=== PATIENT | female | born 1990 | race African-American/Black ===

== ENCOUNTER 2016-10-12 09:46 | Inpatient (IN) | payer MEDICAID ==
[~2016-10-12] VITALS: Ht 170.2 cm; Wt 64.9 kg
[2016-10-12 10:00] VITALS: BP 116/69
[2016-10-12] MEDS ORDERED: LORazepam 2 MG TABLET PO PRN (10:15)
[2016-10-12] MEDS ORDERED: ZOLPIDEM TARTRATE 10 MG TABLET PO PRN (10:15)
[2016-10-12] MEDS ORDERED: HALOPERIDOL 5 MG TABLET PO PRN (10:15)
[2016-10-12] MEDS ORDERED: INFLUENZA VIRUS VACCINE QVS 2016-17 (3YR+)/PF 60 MCG/0.5 ML SYRINGE IM ONE (11:30)
[2016-10-12] MEDS ORDERED: LORazepam 2 MG/ML VIAL ONE (11:47)
[2016-10-12] MEDS ORDERED: DiphenhydrAMINE HCL 50 MG/ML VIAL ONE (11:48)
[2016-10-12] MEDS ORDERED: HALOPERIDOL LACTATE 5 MG/ML VIAL ONE (11:48)
[2016-10-12] MEDS ORDERED: DiphenhydrAMINE HCL 50 MG/ML VIAL IM ONE (12:00)
[2016-10-12] MEDS ORDERED: LORazepam 2 MG/ML VIAL IM ONE (12:00)
[2016-10-12] MEDS ORDERED: HALOPERIDOL LACTATE 5 MG/ML VIAL IM ONE (12:00)
[2016-10-12 14:26] VITALS: BP 94/56
[2016-10-12 17:56] VITALS: BP 118/61
[2016-10-12 17:57] VITALS: BP 118/61
[2016-10-13 07:36] LABS: BASOPHILS % (AUTO) 0.8 % (0.0-2.0); EOSINOPHILS % (AUTO) 2.5 % (1.0-6.0); HEMATOCRIT 38.7 % (36-46); HEMOGLOBIN 12.7 g/dL (12.0-16.0); LYMPHOCYTES # (AUTO) 1.8 K/uL (1.0-4.8); LYMPHOCYTES % (AUTO) 40.6 % (22.0-44.0); MEAN CORPUSCULAR HEMOGLOBIN 32.3 pg (26.0-34.0); MEAN CORPUSCULAR HGB CONC 32.8 G/dL (31.0-37.0); MEAN CORPUSCULAR VOLUME 98 fL (80-100); MONOCYTES # (AUTO) 0.3 K/uL (0.1-1.0); MONOCYTES % (AUTO) 5.7 % (2.0-9.0); NEUTROPHILS # (AUTO) 2.3 K/uL (1.8-7.7); NEUTROPHILS % (AUTO) 50.4 % (40.0-70.0); PLATELET COUNT (AUTO) 289 K/uL (150-450); RED BLOOD CELL COUNT(AUTO) 3.94 MIL/uL (4.00-5.20); WHITE BLOOD COUNT (AUTO) 4.5 K/uL (4.5-11.0)
[2016-10-13 08:33] LABS: ALANINE AMINOTRANSFERASE 19 U/L (12-78); ALBUMIN 3.2 g/dL (3.4-5.0); ANION GAP 10 mmol/L (8-16); ASPARTATE AMINOTRANSFERASE 15 U/L (15-37); BILIRUBIN,TOTAL 0.4 mg/dL (0.1-1.0); CALCIUM, TOTAL 8.5 mg/dL (8.8-10.5); CARBON DIOXIDE 24 mmol/L (22-29); CHLORIDE 104 mmol/L (98-107); GLOMERULAR FILTR. RATE CALC > 60 mL/min (>60); POTASSIUM 3.6 mmol/L (3.5-5.1); SODIUM SERUM 138 mmol/L (136-145); UREA NITROGEN, BLOOD 11 mg/dL (7-18)
[2016-10-13] MEDS: BENZTROPINE MESYLATE 0.5 MG TABLET PO SCH ×2 (09:21→16:46)
[2016-10-13] MEDS: HALOPERIDOL 5 MG TABLET PO SCH ×2 (09:21→16:46)
[2016-10-13] MEDS ORDERED: BACITRACIN 28.4 GM OINTMENT TP ONE (13:29)
[2016-10-13 16:34] VITALS: BP 108/65
[2016-10-14 08:36] VITALS: BP 126/82
[2016-10-14] MEDS: BENZTROPINE MESYLATE 0.5 MG TABLET PO SCH (09:40)
[2016-10-14] MEDS: HALOPERIDOL 5 MG TABLET PO SCH (09:41)
[2016-10-14] MEDS ORDERED: HALO1 PO (12:57)
[2016-10-14] MEDS ORDERED: BENZ0.5T6 PO (12:57)
== END 2016-10-14 13:20 | disposition home or self-care (01) | DRG 751 ==
LOC: B3A 10:23
PROVIDERS: ADMIT Psychiatry & Neurology Psychiatry; ATTEND Psychiatry & Neurology Psychiatry
DX: F29 Unspecified psychosis not due to a substance or known physiological condition (principal); F12.90 Cannabis use, unspecified, uncomplicated; F19.10 Other psychoactive substance abuse, uncomplicated; F14.90 Cocaine use, unspecified, uncomplicated; T14.91 Suicide attempt; Z72.89 Other problems related to lifestyle
CPT/HCPCS: J1200; J1630; J2060